=== PATIENT | female | born 1975 | race Two or more races ===

== ENCOUNTER 2024-05-19 06:45 | Day surgery (SDC) | payer BC, OTHER, SELFPAY ==
--- NOTE | 2024-05-15 11:18 | ESHP_ITS ---
RE: GAL BROWNE : 1975 DATE OF ADMISSION: 05/19/2024 HISTORY OF PRESENT ILLNESS: This is a 48-year-old 2, para 2 with abnormal uterine bleeding with endometrial polyp, who presents for endometrial ablation and removal of polyp. ALLERGIES: VICODIN. MEDICATIONS: Tirzepatide 2.5 mg one subcutaneous injection weekly for weight loss. PAST MEDICAL HISTORY: Gestational diabetes, common migraine, prediabetes, benign breast masses. SOCIAL HISTORY: She denies any alcohol, drug use, or smoking. FAMILY HISTORY: Maternal aunt, breast cancer. Paternal grandmother, colon cancer. Brother, migraine headaches. Mother, hypertension. OBSTETRIC HISTORY: Two previous deliveries in 2008 and 2011. PAST SURGICAL HISTORY: delivery in 2008 and 2011. REVIEW OF SYSTEMS: She denies any chest pain, palpitations, cough, fever, or shortness of breath or lower extremity pain. She denies any headache, change in vision, or right upper quadrant pain. PHYSICAL EXAMINATION: VITAL SIGNS: Blood pressure is 138/74, heart rate 88, respirations 18, temperature 98.2. HEENT: Oropharynx and sclerae are clear. LUNGS: Clear to auscultation bilaterally. HEART: Regular rate and rhythm. ABDOMEN: Old Pfannenstiel scar noted. EXTREMITIES: Nontender. SKIN: No gross rashes or lesions. NEUROLOGIC: No focal deficits. ASSESSMENT: Abnormal uterine bleeding, endometrial polyp. PLAN: Hysteroscopy, fractional dilatation, curettage, and MyoSure removal of endometrial polyp and NovaSure endometrial ablation. Informed consent was obtained. The patient was made aware of the risks, complications, alternatives, and benefits of the proposed procedure and she agrees. She is aware of the risk of injury to bowel or bladder, uterus, adjacent organs, pulmonary embolism, deep vein thrombosis, pelvic infection, reoperation, repair injury to internal organs, anesthesia complications, possibility that a laparotomy needs to be performed to repair organs or control bleeding and the possibility that the procedure is not able to be completed due to severe adhesions or technical difficulties. DT: 09:33:34 TT: 11:12:00 Ref: [id number] - TID: [id number] MTDPancho
[2024-05-18 07:17] VITALS: BMI 23.6
[2024-05-18 07:55] LABS: Basophils # (Auto) 0.1 Thou/mm3 (0.0-0.2); Basophils % (Auto) 1 % (0-2.5); Eosinophils # (Auto) 0.2 Thou/mm3 (0.0-0.5); Eosinophils % (Auto) 3 % (0-10); Hematocrit 40.3 % (36.0-46.0); Hemoglobin 13.6 g/dL (12.0-16.0); Immature Granulocytes % (Auto) 0 % (0-0); Immature Granulocytes Auto 0.01 Thou/mm3 (0.00-0.00); Lymphocytes # (Auto) 2.6 Thou/mm3 (1.0-4.8); Lymphocytes % (Auto) 45 % (10-50); Mean Corpuscular HGB Conc 33.7 g/dl (31.0-37.0); Mean Corpuscular Hemoglobin 27.9 pg (25.0-35.0); Mean Corpuscular Volume 83 fL (80-100); Monocytes # (Auto) 0.5 Thou/mm3 (0.0-0.8); Monocytes % (Auto) 8 % (0-12); Neutrophils # (Auto) 2.5 Thou/mm3 (1.8-7.7); Neutrophils % (Auto) 43 % (37-80); Nucleated Red Blood Cell % 0 /100 WBC (0); Platelet Count 463 Thou/mm3 (140-440); RDW Standard Deviation 40.1 fL (36.4-46.3); Red Blood Count 4.87 Miln/mm3 (4.00-5.20); White Blood Count 5.8 Thou/mm3 (3.6-11.0)
[2024-05-18 08:27] LABS: Alanine Aminotransferase 10 U/L (10-49); Albumin, Serum 4.4 gm/dL (3.5-5.0); Albumin/Globulin Ratio 1.8 (1.2-2.2); Alkaline Phosphatase 77 U/L (46-116); Anion Gap 8 (7-16); Aspartate Amino Transferase 17 U/L (0-34); BUN/Creatinine Ratio 17 Ratio (12-20); Bilirubin,Total 0.4 mg/dL (0.3-1.2); Blood Urea Nitrogen 12 mg/dL (9-23); Calcium 9.5 mg/dL (8.3-10.6); Calcium (Corrected) 9.5 mg/dL (8.5-10.1); Carbon Dioxide 27.3 mMol/L (20.0-31.0); Chloride 105 mMol/L (98-107); Creatinine (Component) 0.7 mg/dL (0.6-1.3); Estimated Creatinine Clearance 73.4 mL/min (>60); Globulin 2.5 gm/dL (2.3-3.5); Glucose 82 mg/dL (74-106); Osmolality,Calculated 278 (275-295); Potassium 3.9 mMol/L (3.4-5.1); Sodium 140 mMol/L (136-145); Total Protein 6.9 gm/dL (5.7-8.2); eGFR > 60 See Note
[2024-05-18 08:58] LABS: Partial Thromboplastin Time 29.9 Seconds (22.0-36.0)
[2024-05-19] VITALS (10 sets, daily range): BP systolic 101–128; BP diastolic 60–77; PULSE 57–72; RESP 14–20; TEMP 36.2–36.9; O2SAT 97–100; BMI 22.4
--- NOTE | 2024-05-19 07:30 | CHAP ---
Visited briefly with patient giving encouragement and prayer.
[2024-05-19] MEDS: RINGERS LACTATED 1000 ML 1,000 ML 30 ML IV (08:00)
--- NOTE | 2024-05-19 10:27 | SUR.PHASEI ---
1027 Patient arrived to recovery resting comfortably in [facility], drowsy and able to arouse with verbal prompting, on oxygen 8L via oxy mask, breathing unlabored, vital signs stable, denies pain, dressing intact to vaginal area; peripad, no bleeding noted, lung sounds clear upon auscultation, bilateral radial pulses present when palpated, report received from Neehmiah CURRIE and Willie LEIVA/Zo SRNA
--- NOTE | 2024-05-19 10:53 | SUR.PHASEI ---
1059 patient sitting up in bed eating ice chips
[2024-05-19] MEDS: ONDANSETRON INJ 2 MG/ML INJ 2 ML 4 MG IV (11:37)
--- NOTE | 2024-05-19 11:37 | SUR.PHASEII ---
113 patient shared she was nausea after dressing into her clothing, patient medicated per anesthesia order Zofran 4mg via IVP, will monitor patient
--- NOTE | 2024-05-19 11:55 | SUR.PHASEII ---
1155 Patient meets discharge criteria from recovery, awake and alert, breathing unlabored, vital signs stable, denies pain, dressing intact; no bleeding noted, patient given medication for nausea prior to discharge, patient shared medication was effective, patient eating ice chips; tolerating well, patient voided in the restroom prior to discharge, patient assisted with dressing into her clothing by her , discharge instructions given to patient and patients , signed discharge instructions. Patient given all her belongings prior to discharge, transported via wheelchair and left in a private vehicle.
--- NOTE | 2024-05-22 10:16 | ESOP_ITS ---
RE: GAL BROWNE : 1975 DATE OF OPERATION: 05/19/2024 PREOPERATIVE DIAGNOSES: 1. Abnormal uterine bleeding. 2. Endometrial polyp. POSTOPERATIVE DIAGNOSES: 1. Abnormal uterine bleeding. 2. Endometrial polyp. PROCEDURES PERFORMED: Hysteroscopy, MyoSure removal of endometrial polyp, and NovaSure endometrial ablation. SURGEON: Antoni Szymanski DO TIE BUYER: None. ANESTHESIA: General. ANESTHESIOLOGIST: Willie Kim CRNA ESTIMATED BLOOD LOSS: 5 mL. COMPLICATIONS: None. COUNTS: Correct. FINDINGS: A uterus sounds to 8.0 cm, a cervical length of 3.5 cm, uterine cavity length of 4.5 cm, uterine cavity width of 3.1 cm, duration of ablation 1 minute and 7 seconds, power setting 77 suarez. Endometrial polyp, posterior fundal aspect of the uterus, measuring 8 mm x 8 mm. DESCRIPTION OF PROCEDURE: After proper informed consent was obtained and the patient made aware of the risks, complications, alternatives, and benefits of the proposed procedure, she was taken to the operating room where she underwent induction of general anesthesia. She was placed in the dorsal lithotomy position. She was prepped and draped in the usual sterile fashion. A timeout was performed and speculum was placed in vagina. A single-tooth tenaculum was used to grasp the anterior lip of the cervix. The uterus was sounded to 8.0 cm, anteverted. The cervical length was measured 3.5 cm. The uterine cavity length was 4.5 cm. The hysteroscope was then utilized to visualize the endocervix and uterine cavity and the above findings noted. The MyoSure REACH device was then used to remove the endometrial polyp and sampled the endometrial tissue and specimen sent to Pathology. The NovaSure catheter was plugged into the controller and went through the purge cycle. The catheter was appropriately seated in the uterine cavity with width meter reading 3.1 cm and the carbon dioxide cavity integrity assessment test was performed. The cavity was intact. The ablation was performed for a total of 1 minute and 7 seconds before the controller shut off. The array was retracted into the sheath and removed from the uterine cavity. The array was redeployed and found to be completely intact. There was no bleeding at the end of the procedure. All instruments were removed from the vagina. She was reversed from general anesthesia and transferred to the recovery room in stable condition. She tolerated the procedure well. Counts were correct. I discussed with patient's family the nature of her condition, intraoperative findings, and expectations for recovery. All questions answered. DT: 10:16:28 TT: 17:57:00 Ref: [id number] - TID: [id number]
== END 2024-05-19 11:55 | disposition home or self-care (01) ==
PROVIDERS: Referring Provider Specialist; Visit Provider Specialist
PROC: 0U5B8ZZ Destruction of Endometrium, Via Natural or Artificial Opening Endoscopic (ICD-10-PCS; CPT 58563; principal; 2024-05-19 08:45)
DX: N84.0 Polyp of corpus uteri (principal); Z80.0 Family history of malignant neoplasm of digestive organs; Z80.3 Family history of malignant neoplasm of breast; Z82.49 Family history of ischemic heart disease and other diseases of the circulatory system
CPT/HCPCS: 58563; 36415; 80053; 84702; 85025; 85610; 85730; 86850; 86900; 86901; A4217; A4649; J0690; J2250; J2371; J2405; J2704; J2765; J3010; J3490; J7120